=== PATIENT | female | born 1980 | race African-American/Black ===

== ENCOUNTER 2024-01-14 11:57 | Emergency (ER) | payer BC ==
[2024-01-14 12:19] VITALS: BP 134/102; PULSE 93; RESP 20; TEMP 98.1; BMI 27.4
[2024-01-14] MEDS ORDERED: KETOROLAC TROMETHAMINE 30 MG/1 ML VIAL ONE (12:20)
[2024-01-14] MEDS ORDERED: LIDOCAINE 5% TOPICAL PATCH ONE (12:20)
[2024-01-14] MEDS: LIDOCAINE 5% TOPICAL PATCH TP ONE (12:25)
[2024-01-14] MEDS: KETOROLAC TROMETHAMINE 30 MG/1 ML VIAL IM ONE (12:26)
[2024-01-14] MEDS ORDERED: LIDOCAINE PATCH REMOVAL MC SCH (22:00)
== END 2024-01-14 13:07 | disposition home or self-care (01) ==
LOC: FER 11:57
PROC: 3E0233Z Introduction of Anti-inflammatory into Muscle, Percutaneous Approach (ICD-10-PCS; principal; 2024-01-14)
DX: M54.6 Pain in thoracic spine (principal)
CPT/HCPCS: 99284-25